=== PATIENT | male | born 1970 ===

== ENCOUNTER 2021-10-26 05:08 | Day surgery (SDC) | payer OTHER ==
[~2021-10-26] VITALS: Ht 175.3 cm; Wt 63.5 kg
[~2021-10-26 05:08] MED LIST: AMLODIPINE-OLM1 EACH; ECOTRIN81 MG; LEVOXYL137 MCG; NIACOR500 MG; SIMVASTATIN; SIMVASTATIN5 MG
[2021-10-26] MEDS ORDERED: NEURONTIN600 M1 PO (10:15)
[2021-10-26] MEDS ORDERED: PERCOCET 5-3251 EACH PO (10:15)
[2021-10-26] MEDS ORDERED: POLY119PG PO (10:15)
== END 2021-10-26 13:55 | disposition home or self-care (01) ==
LOC: CIR.AMB 05:08
PROVIDERS: ATTEND Surgery
DX: K40.20 Bilateral inguinal hernia, without obstruction or gangrene, not specified as recurrent (principal); Z20.822 Contact with and (suspected) exposure to COVID-19; I10 Essential (primary) hypertension; I25.2 Old myocardial infarction; E78.5 Hyperlipidemia, unspecified; E03.9 Hypothyroidism, unspecified
CPT/HCPCS: 49650; C1781